=== PATIENT | male | born 1965 | race Caucasian/White ===

== ENCOUNTER 2021-03-27 13:18 | Outpatient (CLI) | payer BC, SELFPAY ==
--- NOTE | ~2021-03-27 | XR_ITS ---
XR hip RT min 2V DATE: 03/27/2021 13:56 INDICATION: Right hip pain TECHNIQUE: AP and lateral views COMPARISON: None FINDINGS: There is patchy sclerosis and slight offset of the cortex of the right femoral head superol aterally suggesting avascular necrosis. Consider MR right hip correlation. Otherwise no fracture or dislocation or bone destruction is noted. The pubic symphysis and right sacroiliac joint appear normally aligned. There is some soft tissue calcifications posterior to the right ischium. IMPRESSION: Avascular necrosis of the right femoral head Reviewed, dictated and finalized at location B. 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
--- NOTE | ~2021-03-27 | XR_ITS ---
XR lumbar spine 2-3V DATE: 03/27/2021 13:56 INDICATION: Right hip pain TECHNIQUE: AP, lateral, coned lateral lumbosacral views COMPARISON: None FINDINGS: There is diffuse idiopathic skeletal hyperostosis of the lower thoracic spine. Normal alignment of the lumbar spine. No fracture or bone destruction or spondylolisthesis. The lumba r pedicles are intact. There is degenerative spurring of the lumbar spine, particularly at L3-4, but the lumbar and lumbosac ral interspaces are relatively well preserved. The sacroiliac joints are intact. Surgical clips, right upper quadrant, consistent with cholecystectomy. IMPRESSION: Diffuse idiopathic skeletal hyperostosis of the lower thoracic spine Degenerative spurring of the lumbar spine but relative preservation of intervertebral disc spaces Status post cholecystectomy Reviewed, dictated and finalized at location B. [employer] IMPRESSION: Diffuse idiopathic skeletal hyperostosis of the lower thoracic spin e Degenerative spurring of the lumbar spine but relative preservation of interver tebral disc spaces Status post cholecystectomy
== END 2021-03-27 13:19 ==
PROVIDERS: PCP Family Medicine; Visit Provider Physician Assistant
DX: M87.851 Other osteonecrosis, right femur (principal); Z90.49 Acquired absence of other specified parts of digestive tract; M48.14 Ankylosing hyperostosis [Forestier], thoracic region
CPT/HCPCS: 72100; 73502